=== PATIENT | female | born 1985 | race American Indian/Alaskan Native ===

== ENCOUNTER 2017-02-19 08:46 | Outpatient (CLI) | payer BC ==
--- NOTE | 2017-02-19 10:27 | Mammography Report ---
BILATERAL DIGITAL DIAGNOSTIC MAMMOGRAM with CAD and RIGHT BREAST ULTRASOUND: 02/19/17 08:55:00 CLINICAL: Right breast pain and lump. History of a right benign surgical excision. The patient describes removal of a cyst. COMPARISON:None available. FINDINGS: The breasts are heterogeneously dense, which may obscure small masses.An oval circumscribed right inner breast mass measures 2.7 cm and correlates with the palpable lump.No other masses. No architectural distortion or suspicious calcifications. The left breast is negative. Ultrasound of the right breast (including all four quadrants and the retroareolar area) was performed and demonstrated an oval complex mass at 4 o'clock 3 cm from the nipple. The mass is oval and relatively smooth with both cystic and solid components. The morphology is that of a thickwalled cyst with the wall measuring 6 mm at its thickest point but also very thin and irregular in some areas. It measures 2.7 x 1.5 x 2.7 cm. IMPRESSION: A suspicious 2.7 cm complex right breast mass at 4 o'clock. BI-RADS CATEGORY: 4--Suspicious RECOMMENDATION: Ultrasound guided needle core biopsy of the right breast mass. I discussed the findings and the recommendation for needle core biopsy with the patient at the time of the examination. ACR BI-RADS MAMMOGRAPHIC CODES: 0 = Needs additional imaging evaluation; 1 = Negative; 2 = Benign; 3 = Probably benign; 4 = Suspicious; 5 = Malignant; 6 = Known biopsy-proven malignancy COMMENT: 1. Dense breast tissue, i.e., adenosis, fibrocystic changes, etc., may obscure an underlying neoplasm. 2. Approximately 10% of cancers are not detected with mammography. 3. A negative mammography report should not delay biopsy if a clinically suspicious mass is present. COMMENT: Patient follow-up letters are generated by our [employer] application.
== END 2017-02-19 08:47 | disposition home or self-care (01) ==
LOC: SPVWC 08:46
PROVIDERS: ATTEND Internal Medicine
DX: N63 Unspecified lump in breast (principal); N64.4 Mastodynia; F17.200 Nicotine dependence, unspecified, uncomplicated
CPT/HCPCS: 76641; G0204; 77066

== ENCOUNTER 2017-03-04 08:24 | Outpatient (CLI) | payer BC ==
--- NOTE | 2017-03-04 09:59 | Mammography Report ---
RIGHT DIGITAL DIAGNOSTIC MAMMOGRAM: 03/04/17 08:24:00 CLINICAL: For clip placement immediately status post ultrasound biopsy. COMPARISON:02/19/17 FINDINGS: A biopsy clip is now identified within the inner right breast mass. The mass is smaller. IMPRESSION: Concordant clip placement status post ultrasound biopsy. BI-RADS CATEGORY: 4--Suspicious Pathology pending.
--- NOTE | 2017-03-04 10:04 | Ultrasound Report ---
VACUUM ASSISTED ULTRASOUND GUIDED NEEDLE CORE BIOPSY WITH CLIP PLACEMENT RIGHT BREAST: 03/04/17 08:24:00 CLINICAL: A thick walled cystic mass at 4 o'clock 3 cm from the nipple. COMPARISON :02/19/17 FINDINGS: The procedure was explained to the patient and informed consent was obtained. Ultrasound demonstrated the previously described thickwalled cyst at 4 o'clock. The skin was prepped with Betadine and anesthetized with 1% lidocaine. Vacuum-assisted needle core biopsy was performed through a small dermatotomy using ultrasound guidance, 2% lidocaine with epinephrine for deep anesthesia and a 13-gauge Mammotome Elite biopsy probe. Multiple cores were obtained and placed in formalin. The lesion showed some collapse with sampling. A hydro-nia clip was deployed within the lesion. Hemostasis was achieved with minimal pressure and a sterile dressing was applied. The patient tolerated the procedure well and there were no apparent complications. A two view mammogram demonstrated concordant clip placement and a smaller mass. The patient left the department in good condition and was given instructions for wound care and follow up. IMPRESSION: Uncomplicated vacuum-assisted ultrasound core biopsy and clip placement right breast.
== END 2017-03-04 08:25 | disposition home or self-care (01) ==
LOC: SPVWC 08:24
PROVIDERS: ATTEND Internal Medicine
DX: N63 Unspecified lump in breast (principal); N60.01 Solitary cyst of right breast; F17.200 Nicotine dependence, unspecified, uncomplicated
CPT/HCPCS: 19083; 88305; A4648; G0206

== ENCOUNTER 2017-04-22 06:13 | Day surgery (SDC) | payer BC ==
[~2017-04-22 06:13] MED LIST: ANCEF/STERILE WATER 2 GM/20 ML IV NR
[2017-04-22] MEDS ORDERED: NACL BACTERIOSTATIC INFILTRATI ONE (06:46)
[2017-04-22 07:09] LABS: Hematocrit 35.8 % (30.3-42.9); Hemoglobin 12.1 gm/dl (10.1-14.3)
[2017-04-22] MEDS ORDERED: XYLOCAINE MPF 2% ONE (07:16)
[2017-04-22] MEDS ORDERED: DIPRIVAN 10 MG/ML IV ONE (07:17)
[2017-04-22] MEDS ORDERED: SUBLIMAZE ONE (07:17)
--- NOTE | 2017-04-22 07:20 | Anesthesia Day of Surgery ---
Anesthesia Day of Surgery - Day of Surgery Patient Examined: Yes Patient H&P Reviewed: Yes Patient is NPO: Yes
--- NOTE | 2017-04-22 07:20 | Anesthesia Consultation ---
Anesthesia Consult and Med Hx Date of service: 04/22/17 - Airway Anesthetic Teeth Evaluation: Good ROM Head & Neck: Adequate Mental/Hyoid Distance: Adequate Mallampati Class: Class II Intubation Access Assessment: Probably Good - Pulmonary Exam CTA: Yes - Cardiac Exam Cardiac Exam: RRR - Pre-Operative Health Status ASA Pre-Surgery Classification: ASA2 Proposed Anesthetic Plan: General - Pulmonary Hx Smoking: Yes (1/2 PPD X 15 YRS) Hx Asthma: Yes (NO MEDS) Hx Sleep Apnea: No (TRAVIS PRE SCREEN NEGATIVE) - Cardiovascular System Hx Hypertension: No - Central Nervous System Hx Seizures: No CVA: No - Endocrine Hx Renal Disease: No Hx Cirrhosis: No - Hematic Hx Anemia: Yes - Other Systems Hx Cancer: No Hx Obesity: Yes
[2017-04-22] MEDS ORDERED: PEPCID PO NR (08:00)
[2017-04-22] MEDS ORDERED: LACTATED RINGERS 1,000 ML IV SCH (08:00)
[2017-04-22] MEDS ORDERED: VERSED IV NR (08:00)
[2017-04-22] MEDS ORDERED: WATER FOR IRRIG STERILE IR ONE (08:19)
[2017-04-22] MEDS ORDERED: MARCAINE 0.25% INFILTRATI ONE ×2 (08:19→08:43)
[2017-04-22] MEDS ORDERED: XYLOCAINE 1% 20 mL INFILTRATI ONE (08:19)
[2017-04-22] MEDS ORDERED: DECADRON ONE (08:34)
[2017-04-22] MEDS ORDERED: ZOFRAN ONE (08:34)
[2017-04-22] MEDS ORDERED: XYLOCAINE 1% 20 mL ONE (08:43)
--- NOTE | 2017-04-22 09:36 | Short Stay Summary ---
Short Stay Documentation Date of service: 04/22/17 - History H&P: obtained from office - Allergies and Medications Current Medications: Allergies strawberry Allergy (Verified 04/17/17 09:05) Vomiting Home Medications Medication Instructions Recorded Confirmed Last Taken Type HYDROcodone/APAP 5-325 [Hydro 1 each PO Q6HR PRN #30 tablet 04/22/17 Unknown Rx 5/325] Active Medications Cefazolin Sodium (Ancef/Sterile Water 2 Gm/20 Ml) 2 gm IV PREOP NR Stop: 04/22/17 23:59 Famotidine (Pepcid) 20 mg PO PREOP NR Stop: 04/22/17 10:00 Last Admin: 04/22/17 07:42 Dose: 20 mg Lactated Ringer's (Lactated Ringers) 1,000 mls @ 75 mls/hr IV DIRECT ALBA Last Admin: 04/22/17 07:45 Dose: 75 mls/hr Midazolam HCl (Versed) 2 mg IV PREOP NR Stop: 04/22/17 23:59 Last Admin: 04/22/17 07:46 Dose: 2 mg - Brief post op/procedure progress note Date of procedure: 04/22/17 Pre-op diagnosis: 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 Post-op diagnosis: same Procedure: Right breast fibroadenoma excisional biopsy Anesthesia: GETA Findings: Known fibroadenoma at the 5:00 position 1 cm from the right nipple Surgeon: INOCENCIA MILLER Desk Interviewer: FRANCOIS PEARCE Estimated blood loss: minimal Pathology: list (right breast fibroadenoma) Specimen disposition: to lab Condition: stable - Disposition Condition at discharge: Good Disposition: DC-[id number] TO HOME OR SELFCARE Short Stay Discharge Plan Activity: other (no heavy lifting) Diet: regular Wound: other (keep incision clean and dry; may shower in 24 hours; no baths, pools or lakes; do not rub or scrub incision) Follow up with: KVNG DYSON MD [Primary Care Provider] - 7 Days INOCENCIA MILLER MD [Staff Physician] - 7 Days Prescriptions: HYDROcodone/APAP 5-325 [Hydro 5/325] 1 each PO Q6HR PRN #30 tablet PRN Reason: Pain
--- NOTE | 2017-04-22 09:42 | Operative Report ---
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 Asst.: Needed, Anesthesia: Gen. Findings: Known fibroadenoma in the right breast at the 5 o'clock position 1 cm from the nipple Complications: None Estimated blood loss: Minimal Drains: None Disposition: PACU in good condition Indications for operative procedure: This is a 31-year-old -Italian lady with known right breast fibroadenoma from the 4 to 5 o'clock position 1 cm from the nipple. Given symptomatic pain patient wanted to proceed with an excisional biopsy. She was consented for the above procedure and wished to proceed. Procedure in detail: The patient was taken to the operating room. General anesthesia was administered. The right breast was prepped and draped in the normal sterile operative fashion. Fibroadenoma was palpable around the 4:30 position 1 cm from the nipple. A medial periareolar incision was made with a 15 blade knife and dissection taken down to subcutaneous tissues. The fibroadenoma was palpable and appropriately identified and dissected free. Breast cavity was anesthetized with 1% lidocaine mixed with quarter percent Marcaine. Specimen wasn't sent to pathology. Hemostasis was obtained with the aid of the Bovie cautery. The breast tissue was approximated and closed using interrupted 3-0 Vicryl and skin closed using a running 4-0 Monocryl followed by skin affix. She tolerated surgery very well and was awaken from anesthesia without complications and transported to PACU in good condition.
[2017-04-22] MEDS: DILAUDID IV PRN ×2 (09:53→10:09)
--- NOTE | 2017-04-22 10:03 | Post Anesthesia Evaluation ---
- Post Anesthesia Evaluation Patient Participated: Yes Airway Patent: Yes Stable Respiratory Function: Yes Nausea/Vomiting: No Temp > 96.8F: Yes Pain Manageable: Yes Adequeate Hydration: Yes Anesthesia Complications: No Block Receding Appropriately: Not Applicable Patient on Ventilator: No
[2017-04-22] MEDS ORDERED: NORCO 5/325 PO ONE (10:48)
[2017-04-22 10:58] VITALS: BP 107/69
== END 2017-04-22 11:17 | disposition home or self-care (01) ==
LOC: OR 06:13
PROVIDERS: ATTEND Surgery
DX: D24.1 Benign neoplasm of right breast (principal); J45.909 Unspecified asthma, uncomplicated; D64.9 Anemia, unspecified; E66.9 Obesity, unspecified; Z68.35 Body mass index [BMI] 35.0-35.9, adult; Z87.891 Personal history of nicotine dependence; Z98.890 Other specified postprocedural states
CPT/HCPCS: 19120; 36415; 85014; 85018; 88305; J0690; J1100; J1170; J2250; J2405; J2704; J3010; J7120; 88307

== ENCOUNTER 2018-09-23 08:47 | Outpatient (CLI) | payer BC ==
--- NOTE | 2018-09-23 10:42 | Ultrasound Report ---
RIGHT DIGITAL DIAGNOSTIC MAMMOGRAM with CAD and RIGHT BREAST ULTRASOUND: 09/23/18 CLINICAL: Right breast pain and lump. Status post surgical excision of a right benign fibroadenoma. A needle biopsy on 03/04/17 revealed fibroadenoma with cystic and myxoid changes. COMPARISON:02/19/17 and 03/04/17 FINDINGS: The breast is heterogeneously dense, which may obscure small masses.No mass, architectural distortion or suspicious calcifications. The previously described oval circumscribed inner mass has been excised. No mammographic finding at a palpable marker at 6 o'clock. Ultrasound of the right breast (including all four quadrants and the retroareolar area) was performed. A prominent fat lobule versus a solid mass at 4 o'clock 1 cm from the nipple measures 7 x 3 x 6 mm. There is tenderness associated with it but it is not palpable. I examined the breast and scan the breasts myself and felt a lumpiness in 6 o'clock with no ultrasound abnormality. IMPRESSION: A probably benign 7 x 3 x 6 mm solid mass versus prominent fat lobule at 4 o'clock 1cm from the nipple. Recommend 6 month followup targeted right breast ultrasound and right mammogram if needed. BI-RADS CATEGORY: 3 - - Probably Benign ACR BI-RADS MAMMOGRAPHIC CODES: 0 = Needs additional imaging evaluation; 1 = Negative; 2 = Benign; 3 = Probably benign; 4 = Suspicious; 5 = Malignant; 6 = Known biopsy-proven malignancy COMMENT: 1. Dense breast tissue, i.e., adenosis, fibrocystic changes, etc., may obscure an underlying neoplasm. 2. Approximately 10% of cancers are not detected with mammography. 3. A negative mammography report should not delay biopsy if a clinically suspicious mass is present. COMMENT: Patient follow-up letters are generated by our [employer] application.
== END 2018-09-23 08:48 | disposition home or self-care (01) ==
LOC: SPVWC 08:47
PROVIDERS: ATTEND Internal Medicine
DX: N64.4 Mastodynia (principal); J45.909 Unspecified asthma, uncomplicated; E66.9 Obesity, unspecified; Z87.891 Personal history of nicotine dependence